=== PATIENT | female | born 1970 | race Two or more races ===

== ENCOUNTER 2022-01-19 12:45 | Inpatient (IN) | payer OTHER ==
[~2022-01-19] VITALS: Ht 160 cm; Wt 106.6 kg
[~2022-01-19 12:45] MED LIST: LOSARTAN-HCTZ1 EAC2 PO; PNEU16DI2
[2022-01-19] MEDS ORDERED: HYDRALAZINE HCL25 MG PO (15:56)
[2022-01-19] MEDS ORDERED: VITAMIN C500 M6 PO (15:57)
[2022-01-19] MEDS ORDERED: METFORMIN HCL500 M3 PO (15:57)
[2022-01-19] MEDS ORDERED: ZYRTEC10 M3 PO (15:57)
[2022-01-19] MEDS ORDERED: D3 + K2 DOTS 11 EACH PO (15:57)
== END 2022-01-24 12:42 | disposition home or self-care (01) | DRG 743 ==
LOC: OB/GYN 01-22 05:40 → O/R 01-22 05:40 → OB/GYN 01-22 07:00
PROVIDERS: ADMIT Specialist; ATTEND Specialist
PROC: 0UT70ZZ Resection of Bilateral Fallopian Tubes, Open Approach (ICD-10-PCS; 2022-01-22)
PROC: 0UT20ZZ Resection of Bilateral Ovaries, Open Approach (ICD-10-PCS; 2022-01-22)
PROC: 0DNW0ZZ Release Peritoneum, Open Approach (ICD-10-PCS; 2022-01-22)
PROC: 0DBU0ZZ Excision of Omentum, Open Approach (ICD-10-PCS; 2022-01-22)
PROC: 0DNN0ZZ Release Sigmoid Colon, Open Approach (ICD-10-PCS; 2022-01-22)
PROC: 0DN80ZZ Release Small Intestine, Open Approach (ICD-10-PCS; 2022-01-22)
PROC: 0WBH0ZZ Excision of Retroperitoneum, Open Approach (ICD-10-PCS; 2022-01-22)
PROC: 3E1M38Z Irrigation of Peritoneal Cavity using Irrigating Substance, Percutaneous Approach (ICD-10-PCS; 2022-01-22)
PROC: 0UT90ZZ Resection of Uterus, Open Approach (ICD-10-PCS; principal; 2022-01-22 07:00)
DX: N72 Inflammatory disease of cervix uteri (principal); Z20.822 Contact with and (suspected) exposure to COVID-19; N83.12 Corpus luteum cyst of left ovary; K66.0 Peritoneal adhesions (postprocedural) (postinfection)